=== PATIENT | female | born 1965 | race Two or more races ===

== ENCOUNTER 2019-12-03 06:54 | Emergency (ER) | payer MEDICAID, OTHER ==
[~2019-12-03] VITALS: Ht 154.9 cm; Wt 113.4 kg
[2019-12-03 07:28] VITALS: BP 135/62
== END 2019-12-03 08:15 | disposition home or self-care (01) ==
LOC: ER 06:54 → EDBD 06:54 → ER 08:15
DX: R06.00 Dyspnea, unspecified (principal); Z20.828 Contact with and (suspected) exposure to other viral communicable diseases
CPT/HCPCS: 36415; 71045; 87426

== ENCOUNTER 2020-05-06 02:13 | Emergency (ER) | payer MEDICAID ==
[~2020-05-06] VITALS: Ht 154.9 cm; Wt 124.7 kg
[2020-05-06 03:03] LABS: Basophils # (auto) 0.1 10 ^3/uL (0-0.2); Basophils % (auto) 0.6 % (0.0-2.0); Eosinophils # (auto) 0.2 10 ^3/uL (0-0.8); Eosinophils % (auto) 2.3 % (0.0-7.0); Hematocrit 41.7 % (36.0-46.0); Hemoglobin 13.7 g/dL (12.2-16.2); Lymphocytes # (auto) 1.7 10 ^3/uL (0.4-5.4); Lymphocytes % (auto) 15.6 % (10.0-50.0); Mean Corpuscular Hemoglobin 28.8 pg (28.0-32.0); Mean Corpuscular Volume 87.4 fL (80.0-100.0); Monocytes # (auto) 0.5 10 ^3/uL (0-1.3); Neutrophils # (auto) 8.3 10 ^3/uL (1.6-8.6); Neutrophils % (auto) 76.5 % (37.0-80.0); Nucleated Red Blood Cells % 0.1 %; Platelet Count (auto) 244 10^3/uL (140-450); Red Blood Cells 4.77 10^6/uL (4.0-5.20); Red Cell Distribution Width 16.2 % (11.8-14.3); White Blood Cell 10.9 10^3/uL (4.4-10.8)
[2020-05-06 03:23] LABS: Albumin 3.3 g/dL (3.4-5.0); Anion Gap 6 (5-15); Blood Urea Nitrogen 14 mg/dL (7-18); Calcium 9.2 mg/dL (8.5-10.1); Carbon Dioxide 28 mmol/L (21-32); Chloride 107 mmol/L (98-107); GFR African American 130 mL/min; GFR Non-African American 108 mL/min; Glucose 115 mg/dL (74-106); Potassium 3.8 mmol/L (3.5-5.1); Sodium 141 mmol/L (136-145)
[2020-05-06 03:28] LABS: Alanine Aminotransferase 28 U/L (13-56); Alkaline Phosphatase 87 U/L (45-117); Aspartate Aminotransferase 17 U/L (15-37); Bilirubin, Total 0.2 mg/dL (0.2-1.0); Total Protein 7.6 g/dL (6.4-8.2)
[2020-05-06 06:52] LABS: Urine Bacteria NONE SEEN /hpf (None Seen); Urine Blood Negative /uL (Negative); Urine Specific Gravity 1.011 (1.001-1.035); Urine WBC <1 /hpf (0 - 5)
[2020-05-06 07:26] VITALS: BP 139/74
== END 2020-05-06 08:28 | disposition home or self-care (01) ==
LOC: ER 02:15
DX: G47.30 Sleep apnea, unspecified (principal); E44.1 Mild protein-calorie malnutrition; E11.9 Type 2 diabetes mellitus without complications; E78.5 Hyperlipidemia, unspecified; I10 Essential (primary) hypertension; Z98.51 Tubal ligation status; Z68.43 Body mass index [BMI] 50.0-59.9, adult; Z90.49 Acquired absence of other specified parts of digestive tract
CPT/HCPCS: 36415; 71045; 80053; 81001; 83880; 84484; 85025; 93005

== ENCOUNTER 2025-01-06 06:05 | Inpatient (IN) | payer MEDICAID ==
[~2025-01-06] VITALS: Ht 154.9 cm; Wt 124.2 kg
--- NOTE | 2025-01-06 07:08 | ED.PDOC ---
Musculoskeletal HPI Comments 59-year-old female that presents to the ED with a chief complaint of lower extremity pain. Patient states since Sunday three days prior she has been having left leg pain and swelling. Patient states she was [place] [employer] and states she was possibly bite to the left leg Patient states since she has been having increased redness and swelling to the left leg. Patient states she applied Neosporin but states it has not been helping. Patient has a noted redness swelling and tenderness to the touch to the left leg. Patient is otherwise able to bear weight. Patient otherwise since denies any associated fever or shortness of breath chills and no noted pus or exudates noted. Chief Complaint: Lower Extremity Time Seen by MD: 07:04 Reviewed Notes: Medications, Allergies Allergies: Coded Allergies: NO KNOWN ALLERGIES (Unverified , 12/03/19) Home Meds Active Scripts Clindamycin Hcl (Clindamycin Hcl) 300 Mg Cap, 1 CAP PO TID, #30 CAP Prov:ALMA RAYA MD 01/09/25 Reported Medications Multiple Vitamin (Multivitamins) Tab, 1 TAB PO DAILY, #90 TAB 3 Refills 01/06/25 Valsartan-Hydrochlorothiazide (Diovan Hct) 160 Mg/25 Mg Tab, 1 TAB PO DAILY, #30 TAB 5 Refills 01/06/25 Information Source: Patient Mode of Arrival: Ambulatory Brought in by: Self Past Medical History PAST MEDICAL HISTORY: DM, High Lipids, HTN Surgical History: BTL, Cholecystectomy [employer]NAGER History: No Pertinent [employer]NAGER History Family History Family History: Family hx of DM Social History Smoker: Non-Smoker Alcohol: Denies ETOH Use Drugs: Denies Drug Use Lives In: Home Constitutional: denies: chills, diaphoresis, fatigue, fever, malaise, sweats, weakness, others EENTM: denies: blurred vision, double vision, ear bleeding, ear discharge, ear drainage, ear pain, ear ringing, eye pain, eye redness, hearing loss, mouth pain, mouth swelling, nasal discharge, nose bleeding, nose congestion, nose pain, photophobia, tearing, throat pain, throat swelling, voice changes, others Respiratory: denies: cough, hemoptysis, orthopnea, SOB at rest, shortness of breath, SOB with excertion, stridor, wheezing, others Cardiovascular: denies: chest pain, dizzy spells, diaphoresis, Dyspnea on exertion, edema, irregular heart beat, left arm pain, lightheadedness, palpitations, PND, syncope, others Gastrointestinal: denies: abdomen distended, abdominal pain, blood streaked bowels, constipated, diarrhea, dysphagia, difficulty swallowing, hematemesis, melena, nausea, poor appetite, poor fluid intake, rectal bleeding, rectal pain, vomiting, others Genitourinary: denies: abnormal vagina bleeding, burning, dyspareunia, dysuria, flank pain, frequency, hematuria, incontinence, pain, , vagina discharge, urgency, others Neurological: denies: dizziness, fainting, headache, left sided numbness, left sided weakness, numbness, paresthesia, pre-existing deficit, right sided numbness, right sided weakness, seizure, speech problems, tingling, tremors, weakness, others Musculoskeletal: reports: joint pain (Left leg), joint swelling (Left leg); denies: back pain, gout, muscle pain, muscle stiffness, neck pain, others Integumetry: denies: bruises, change in color, change in hair/nails, dryness, laceration, lesions, lumps, rash, wounds, others Allergic/Immunocompromised: denies: Difficulty Healing, Frequent Infections, Hives, Itching, others Hematologic/Lymphatic: denies: anemia, blood clots, easy bleeding, easy bruising, swollen glands, others Endocrine: denies: excessive hunger, excessive sweating, excessive thirst, excessive urination, flushing, intolerance to cold, intolerance to heat, unexplained weight gain, unexplained weight loss, others Psychiatric: denies: anxiety, bipolar disorder, depression, hopeless, panic disorder, schizophrenia, sleepless, suicidal, others All Other Systems: Reviewed and Negative Physical Exam General Appearance: No Apparent Distress, Normal HEENT: Normal ENT Inspection, Pharynx Normal, TMs Normal Neck: Full Range of Motion, Non-Tender, Normal, Normal Inspection Respiratory: Chest Non-Tender, Lungs Clear, No Accessory Muscle Use, No Respiratory Distress, Normal Breath Sounds Cardiovascular: No Edema, No JVD, No Murmur, No Gallop, Normal Peripheral Pulses, Regular Rate/Rhythm Breast Exam: Deferred Gastrointestinal: No Organomegaly, Non Tender, No Pulsatile Mass, Normal Bowel Sounds, Soft Genitalia: Deferred Pelvic: Deferred Rectal: Deferred Extremities: No calf tenderness, Normal capillary refill, Normal inspection, Normal range of motion, Non-tender, No pedal edema Musculoskeletal : Apperance: Normal Neurologic: Alert, manager farm II-XII nml as Tested, No Motor Deficits, Normal Affect, Normal Mood, No Sensory Deficits Cerebellar Function: Normal Reflexes: Normal Skin: Dry, Normal Color, Warm Lymphatic: No Adenopathy Was a procedure done? Was a procedure done?: No Images 1 - Erythema, warmth, TTP. no draiage. no crepitus Differential Diagnosis EXT Differential Diagnosis: Cellulitis, Fracture, Sprain, Dislocation, Septic Other Differential Diagnosis Osteomyelitis X-Ray, Labs, Meds, VS Vital Signs Date Time Temp Pulse Resp B/P (MAP) Pulse Ox O2 Delivery O2 Flow Rate FiO2 01/06/25 10:43 75 18 143/71 (95) 92 01/06/25 10:40 Room Air* 0 21 01/06/25 06:08 99.0 102 18 145/77 95 99.0 Lab Test 01/06/25 08:48 01/06/25 07:10 Range/Units Urine Color Yellow Yellow Urine Clarity Clear Clear Urine pH 6.0 5.0-9.0 Urine Specific [place] 1.023 1.001-1.035 Urine Protein Negative Negative Urine Ketones Negative Negative Urine Blood Negative Negative /uL Urine Nitrite Negative Negative Urine Bilirubin Negative Negative Urine Urobilinogen Normal Negative mg/dL Urine Leukocyte Esterase Negative Negative /uL Urine RBC 2 0 - 4 /hpf Urine Microscopic WBC 2 0-5 /HPF Urine Squamous Epithelial Cells Few <5 /hpf Urine Bacteria Few H None Seen /hpf Urine Mucus Few None Seen Urine Glucose Normal Normal mg/dL White Blood Count 14.9 H 4.4-10.8 10^3/uL Red Blood Count 4.77 4.0-5.20 10^6/uL Hemoglobin 13.8 12.2-16.2 g/dL Hematocrit 42.7 36.0-46.0 % Mean Corpuscular Volume 89.5 80.0-100.0 fL Mean Corpuscular Hemoglobin 29.0 28.0-32.0 pg Mean Corpuscular Hemoglobin Concent 32.4 32.0-36.0 g/dL Red Cell Distribution Width 14.7 H 11.8-14.3 % Platelet Count 262 140-450 10^3/uL Mean Platelet Volume 11.0 H 6.9-10.8 fL Neutrophils (%) (Auto) 81.6 H 37.0-80.0 % Lymphocytes (%) (Auto) 11.1 10.0-50.0 % Monocytes (%) (Auto) 5.6 0.0-12.0 % Eosinophils (%) (Auto) 1.0 0.0-7.0 % Basophils (%) (Auto) 0.7 0.0-2.0 % Neutrophils # (Auto) 12.1 H 1.6-8.6 10 ^3/uL Lymphocytes # (Auto) 1.7 0.4-5.4 10 ^3/uL Monocytes # (Auto) 0.8 0-1.3 10 ^3/uL Eosinophils # (Auto) 0.1 0-0.8 10 ^3/uL Basophils # (Auto) 0.1 0-0.2 10 ^3/uL Nucleated Red Blood Cells 0.0 % Erythrocyte Sedimentation Rate 39 H 0-20 mm/hr Sodium Level 138 136-145 mmol/L Potassium Level 4.2 3.5-5.1 mmol/L Chloride Level 100 98-107 mmol/L Carbon Dioxide Level 28 20-31 mmol/L Anion Gap 10 5-15 Blood Urea Nitrogen 17 9-23 mg/dL Creatinine 0.73 0.550-1.02 mg/dL Glomerular Filtration Rate Calc 94 >90 mL/min BUN/Creatinine Ratio 23.3 H 10.0-20.0 Serum Glucose 108 H 74-106 mg/dL Lactic Acid Level 0.8 0.4-2.0 mmol/L Calcium Level 9.6 8.7-10.4 mg/dL Total Bilirubin 0.9 0.2-1.0 mg/dL Aspartate Amino Transferase (AST) 22 13-40 U/L Alanine Aminotransferase (ALT) 29 7-40 U/L Alkaline Phosphatase 105 46-116 U/L C-Reactive Protein High Sensitivity 8.21 H <1.0 mg/dL Total Protein 7.3 5.7-8.2 g/dL Albumin 4.2 3.2-4.8 g/dL Current Medications Medications (Trade) Dose Ordered Sig/Pratik Route Start Time Stop Time Status Last Admin Cefazolin Sodium/ Dextrose 50 ml @ 50 mls/hr ONCE ONCE IV 01/06/25 10:15 01/06/25 11:14 01/06/25 10:37 [place] [id number] Ph: [phone] DIAGNOSTIC IMAGING Diagnostic Imaging Report : [id number] Signed PATIENT: ISABEL ARCHER ACCT: [id number] UNIT: [id number] : 1965 LOC: ER ROOM / BED: / AGE / SEX: 59 / F ADM STATUS: REG ER SERVICE 4 ORDERING PHYSICIAN: RADHA BOND SECONDS HANDLER PROCEDURE(s): LE1CR - LT LOWER EXTREMITY W CONTRAS REASON: R/o abscess formation, cellulitis, OM ORDER NUMBER(s): [id number], ACCESSION NUMBER(s): [id number] CLINICAL INDICATION: R/o abscess formation, cellulitis, OM TECHNIQUE: CT of the left lower extremity was performed with 100 mL Omnipaque [address] Sagittal and coronal reformatted images are provided. COMPARISON: None CT Dose: CTDI volume is 8.03 mGy. Dose-length product is 6.22 mGy*cm FINDINGS: No fracture or dislocation. There is medial compartment joint space narrowing of the knee. There are tricompartment osteophytes. There soft tissue swelling in the calf and dorsal foot. No fluid collection. IMPRESSION: 1. No acute fracture or dislocation. 2. Soft tissue swelling of the left lower extremity. 3. No drainable fluid collection. All CT scans at this medical facility are performed using dose modulation techniques as appropriate to a performed exam including the following: Automated exposure control was utilized; adjustment of the MA and/or KV according to patient size; and use of iterative reconstruction technique. ATED BY: ENRIQUE BRAUN MD DICTATED DATE/TIME: 01/06/251008 SIGNED BY: ENRIQUE BRAUN MD SIGNED DATE/TIME: 01/06/251008 CC: X-Ray, Labs, Meds, VS Comment Patient arrives alert and oriented, ABC's intact, afebrile, vital signs stable, saturating well in room air History and findings consistent with cellulitis. The patient did not require an incision and drainage. Differentials considered but not limited to Necrotizing Fasciitis, Abscess, Osteomyelitis, DVT Peripheral IV insertion+ labs were ordered. CBC was ordered to exclude anemia, blood loss, or infection. CMP was ordered to exclude electrolyte abnormalities, renal failure, dehydration, hyperglycemia and/or liver enzyme abnormalities. Urinalysis was ordered to rule out UTI or hematuria. Patient was given:ANCEF X 1. Tolerated medications with no adverse reaction. Patients work up was remarkable for cellulitis of the left lower extremity The patient's workup reveals that the patient needs further evaluation and/or treatment for the above medical conditions. Patient verbalized understanding of the above and is awaiting further evaluation by the admitting service. Time of 1ST Reevaluation: 07:40 Reevaluation 1ST: Unchanged Patient Education/Counseling: Diagnosis, Treatment Family Education/Counseling: No Family Present Sepsis Sepsis Reasesment Focused Exam Orders: Laboratory Tests 01/06/25 07:10: Lactic Acid Level 0.8 Departure 1 Departure Time of Disposition: 10:15 Impression: Primary Impression: Cellulitis of left leg Disposition: ADMITTED INPATIENT Condition: Fair e-Prescriptions Clindamycin Hcl (Clindamycin Hcl) 300 Mg Cap 1 CAP PO TID, #30 CAP Prov: ALMA RAYA MD 01/09/25 Critical Care Note Critical Care Time?: No Stability Stability form required: No Heart Score Heart Score: Heart Score Response (Comments) Value History N/A 0 EKG N/A 0 Age N/A 0 Risk Factors N/A 0 Troponin N/A 0 Total 0 I personally scribed for RADHA BOND NP (BULMARO) on 01/06/25 at 07:08. Electronically submitted by Alisa Erazo ([employer]). I personally scribed for RADHA BOND NP (BULMARO) on 01/06/25 at 10:59. Electronically submitted by Alisa WALKER). RADHA BOND NP Jan 06, 2025 07:08
[2025-01-06 08:06] LABS: Alanine Aminotransferase 29 U/L (7-40); Albumin 4.2 g/dL (3.2-4.8); Alkaline Phosphatase 105 U/L (46-116); Anion Gap 10 (5-15); BUN/Creatinine Ratio 23.3 (10.0-20.0); Bilirubin, Total 0.9 mg/dL (0.2-1.0); Blood Urea Nitrogen 17 mg/dL (9-23); Calcium 9.6 mg/dL (8.7-10.4); Carbon Dioxide 28 mmol/L (20-31); Chloride 100 mmol/L (98-107); Potassium 4.2 mmol/L (3.5-5.1); Sodium 138 mmol/L (136-145); Total Protein 7.3 g/dL (5.7-8.2)
[2025-01-06 08:11] LABS: Glucose 108 mg/dL (74-106)
[2025-01-06 08:31] LABS: Hematocrit 42.7 % (36.0-46.0); Hemoglobin 13.8 g/dL (12.2-16.2); Mean Corpuscular Hemoglobin 29.0 pg (28.0-32.0); Mean Corpuscular Volume 89.5 fL (80.0-100.0); Nucleated Red Blood Cells % 0.0 %
[2025-01-06] MEDS: IOHEXOL 300 MG/ML 100ML BOTTLE IJ ONE (10:11)
--- NOTE | 2025-01-06 10:11 | DVH ---
CLINICAL INDICATION: R/o abscess formation, cellulitis, OM TECHNIQUE: CT of the left lower extremity was performed with 100 mL Omnipaque [address] Sagittal and coronal reformatted images are provided. COMPARISON: None CT Dose: CTDI volume is 8.03 mGy. Dose-length product is 6.22 mGy*cm FINDINGS: No fracture or dislocation. There is medial compartment joint space narrowing of the knee. There are tricompartment osteophytes. There soft tissue swelling in the calf and dorsal foot. No f luid collection. IMPRESSION: 1. No acute fracture or dislocation. 2. Soft tissue swelling of the left lower extremity. 3. No drainable fluid collection. All CT scans at this medical facility are performed using dose modulation techniques as appropriate t o a performed exam including the following: Automated exposure control was utilized; adjustment of th e MA and/or KV according to patient size; and use of iterative reconstruction technique.
[2025-01-06 10:29] LABS: Urine Protein, UAD Negative (Negative)
[2025-01-06] MEDS: ceFAZolin 2 GM/D5W50ml 50 ML IV ONE (10:37)
[2025-01-06] MEDS ORDERED: ACETAMINOPHEN 325 MG TAB PO PRN ×2 (12:30→12:45)
[2025-01-06] MEDS ORDERED: DOCUSATE SOD 100 MG CAP PO PRN ×2 (12:30→12:45)
[2025-01-06] MEDS ORDERED: ONDANSETRON HCL 4 MG/2 ML VIAL IV PRN ×2 (12:30→12:45)
[2025-01-06] MEDS ORDERED: HYDROcodone-ACET 5/325MG TAB PO PRN (12:30)
--- NOTE | 2025-01-06 12:37 | DVHHP2 ---
History of Present Illness Reason for Visit: left leg pain History of Present Illness Ceci Fisher is a 59-year-old female with past medical history of hyperlipidemia, pre-diabetes, and hypertension, who came to the hospital for left lower leg redness, swelling, abrasion, and pain. Patient states she thinks she was bite by something on Sunday that started her infection. Patient states she does not take any medications for her pre-diabetes, she manages it with diet. Cardiovascular: HTN, hyperipidemia Past Surgical History: Cholecystectomy, Tubal Ligation Smoke: No ALCOHOL: none Drugs: None Lives: with Family Domestic Violence: Neg Review of Systems Constitutional: No: Fever, Chills, Sweats, Weakness, Malaise, Other Eyes: No: Pain, Vision change, Conjunctivae inflammation, Eyelid inflammation, Other, Redness ENT: No: Ear pain, Ear discharge, Nose pain, Nose discharge, Nose congestion, Mouth pain, Mouth swelling, Throat pain, Throat swelling, Other Respiratory: No: Cough, Dry, Shortness of breath, SOB with excertion, Wheezing, Hemoptysis, Pleuritic Pain, Sputum, Wheezing, Other Cardiovascular: No: Chest Pain, Palpitations, Orthopnea, Paroxysmal Noc. Dyspnea, Edema, Lt Headedness, Other Gastrointestinal: No: Nausea, Vomiting, Abdominal Pain, Diarrhea, Constipation, Melena, Hematochezia, Other Genitourinary: No Dysuria, No Frequency, No Incontinence, No Hematuria, No Retention, No Other Musculoskeletal: leg pain (left leg); No: other, neck pain, shoulder pain, arm pain, back pain, hand pain, foot pain Skin: Lesions (left lower leg redness, swelling, abrasion); No: Rash, Jaundice, Bruising, Other Neurological: No: Weakness, Numbness, Incoordination, Change in speech, Confusion, Seizures, Other Allergies: Coded Allergies: NO KNOWN ALLERGIES (Unverified , 12/03/19) Medications Current Medications Medications Dose Ordered Sig/Pratik Route Start Time Stop Time Status Last Admin Dose Admin Acetaminophen/ Hydrocodone Bitart 1 tab Q4HP PRN PO 01/06/25 12:30 UNV Ondansetron HCl 4 mg Q4HP PRN IV 01/06/25 12:30 UNV Docusate Sodium 100 mg BIDPRN PRN PO 01/06/25 12:30 UNV Acetaminophen 650 mg Q6HP PRN PO 01/06/25 12:30 UNV Exam Vital Signs Vital Signs Date Time Temp Pulse Resp B/P (MAP) Pulse Ox O2 Delivery O2 Flow Rate FiO2 01/06/25 10:43 75 18 143/71 (95) 92 01/06/25 10:40 Room Air* 0 21 01/06/25 06:08 99.0 99.0 General Appearance: Alert, Oriented X3, Cooperative, mild distress HEENT: Atraumatic, PERRLA Respiratory: Clear to auscultation, Normal air movement Cardiovascular: Regular rate, Normal S1, Normal S2 Abdominal: Normal bowel sounds, Soft, No tenderness, No hepatospenomegaly Extremities: No clubbing, No cyanosis, No edema, Normal pulses Skin: No rashes, No breakdown, No significant lesion Neuro: Normal gait, Normal speech, Strength at 5/5 X4 ext Psych/Mental Status: Mental status NL, Mood NL Labs/Xrays Labs Test 01/06/25 08:48 01/06/25 07:10 Range/Units Urine Color Yellow Yellow Urine Clarity Clear Clear Urine pH 6.0 5.0-9.0 Urine Specific [place] 1.023 1.001-1.035 Urine Protein Negative Negative Urine Ketones Negative Negative Urine Blood Negative Negative /uL Urine Nitrite Negative Negative Urine Bilirubin Negative Negative Urine Urobilinogen Normal Negative mg/dL Urine Leukocyte Esterase Negative Negative /uL Urine RBC 2 0 - 4 /hpf Urine Microscopic WBC 2 0-5 /HPF Urine Squamous Epithelial Cells Few <5 /hpf Urine Bacteria Few H None Seen /hpf Urine Mucus Few None Seen Urine Glucose Normal Normal mg/dL White Blood Count 14.9 H 4.4-10.8 10^3/uL Red Blood Count 4.77 4.0-5.20 10^6/uL Hemoglobin 13.8 12.2-16.2 g/dL Hematocrit 42.7 36.0-46.0 % Mean Corpuscular Volume 89.5 80.0-100.0 fL Mean Corpuscular Hemoglobin 29.0 28.0-32.0 pg Mean Corpuscular Hemoglobin Concent 32.4 32.0-36.0 g/dL Red Cell Distribution Width 14.7 H 11.8-14.3 % Platelet Count 262 140-450 10^3/uL Mean Platelet Volume 11.0 H 6.9-10.8 fL Neutrophils (%) (Auto) 81.6 H 37.0-80.0 % Lymphocytes (%) (Auto) 11.1 10.0-50.0 % Monocytes (%) (Auto) 5.6 0.0-12.0 % Eosinophils (%) (Auto) 1.0 0.0-7.0 % Basophils (%) (Auto) 0.7 0.0-2.0 % Neutrophils # (Auto) 12.1 H 1.6-8.6 10 ^3/uL Lymphocytes # (Auto) 1.7 0.4-5.4 10 ^3/uL Monocytes # (Auto) 0.8 0-1.3 10 ^3/uL Eosinophils # (Auto) 0.1 0-0.8 10 ^3/uL Basophils # (Auto) 0.1 0-0.2 10 ^3/uL Nucleated Red Blood Cells 0.0 % Erythrocyte Sedimentation Rate 39 H 0-20 mm/hr Sodium Level 138 136-145 mmol/L Potassium Level 4.2 3.5-5.1 mmol/L Chloride Level 100 98-107 mmol/L Carbon Dioxide Level 28 20-31 mmol/L Anion Gap 10 5-15 Blood Urea Nitrogen 17 9-23 mg/dL Creatinine 0.73 0.550-1.02 mg/dL Glomerular Filtration Rate Calc 94 >90 mL/min BUN/Creatinine Ratio 23.3 H 10.0-20.0 Serum Glucose 108 H 74-106 mg/dL Lactic Acid Level 0.8 0.4-2.0 mmol/L Calcium Level 9.6 8.7-10.4 mg/dL Total Bilirubin 0.9 0.2-1.0 mg/dL Aspartate Amino Transferase (AST) 22 13-40 U/L Alanine Aminotransferase (ALT) 29 7-40 U/L Alkaline Phosphatase 105 46-116 U/L C-Reactive Protein High Sensitivity 8.21 H <1.0 mg/dL Total Protein 7.3 5.7-8.2 g/dL Albumin 4.2 3.2-4.8 g/dL TECHNIQUE: CT of the left lower extremity was performed with 100 mL Omnipaque 300 intravenous contrast. FINDINGS: No fracture or dislocation. There is medial compartment joint space narrowing of the knee. There are tricompartment osteophytes. There soft tissue swelling in the calf and dorsal foot. No fluid collection. IMPRESSION: 1. No acute fracture or dislocation. 2. Soft tissue swelling of the left lower extremity. 3. No drainable fluid collection. SEPSIS Sepsis Screen Date sepsis recognized/suspect: Jan 06, 2025 Time Sepsis recognized/suspect: 607 Recent Procedure: No On Antibiotic Therapy: No Respiratory Rate >20: No Heart Rate >90: Yes Temp<36 C (96.8 F) or >38.3 C: No SBP <90 or MAP <65 mmHG: No New Acute Mental Status Change: No Is the patient on CPAP, BIPAP,: No Physician Orders Blood Culture (01/06/25 06:49) Lt Lower Extremity W [place] (01/06/25 09:15) Admit (01/06/25 12:30) Code Status (01/06/25 12:30) 2 Gm Sodium Diet (01/06/25 Lunch) Hydrocodone-Acet 5/325mg Tab (Cabot 5/32 (01/06/25 12:30) Ondansetron Hcl (Zofran) (01/06/25 12:30) Docusate Sodium Capsule (Colace Capsule) (01/06/25 12:30) Complete Blood Count (01/07/25 04:00) Comprehensive Metabolic Panel (01/07/25 04:00) Condition: Serious (01/06/25 12:30) Acetaminophen Tablet (Tylenol Tablet) (01/06/25 12:30) Vital Signs Date Time Temp Pulse Resp B/P (MAP) Pulse Ox O2 Delivery O2 Flow Rate FiO2 01/06/25 10:43 75 18 143/71 (95) 92 01/06/25 10:40 Room Air* 0 21 01/06/25 06:08 99.0 102 18 145/77 95 99.0 Laboratory Tests Test 01/06/25 07:10 Lactic Acid Level 0.8 mmol/L (0.4-2.0) White Blood Count 14.9 10^3/uL (4.4-10.8) H Medications Medications Dose Ordered Sig/Pratik Route Start Time Stop Time Status Last Admin Dose Admin Cefazolin Sodium/ Dextrose 50 ml @ 50 mls/hr ONCE ONCE IV 01/06/25 10:15 01/06/25 11:14 DC 01/06/25 10:37 50 MLS/HR Assessment/Plan Assessment/Plan Assessment: Cellulitis of left leg, Leukocytosis, Pre-diabetes, Hypertension, Plan: Admit to Med-Surg, IV antibiotics, IV hydration, Wound culture, Home medications reconciled, Plan discussed with: Patient My Orders Orders - RAJEEV MEADE Procedure Category Date Status Time Admit ADMIT 01/06/25 Transmitted 12:30 Code Status CODE 01/06/25 Transmitted 12:30 2 Gm Sodium Diet DIET 01/06/25 Transmitted Lunch Hydrocodone-Acet PHA 01/06/25 Logged 5/325mg Tab (Cabot 12:30 Ondansetron Hcl PHA 01/06/25 Logged (Zofran) 12:30 Docusate Sodium PHA 01/06/25 Logged Capsule (Colace 12:30 Complete Blood Count LAB 01/07/25 Verified 04:00 Comprehensive LAB 01/07/25 Verified Metabolic Panel 04:00 Condition: Serious MARGARETH 01/06/25 In Process 12:30 Acetaminophen Tablet PHA 01/06/25 Logged (Tylenol Tablet) 12:30 Date of Service: Jan 06, 2025 Billing Provider: RAJEEV MEADE Common Visit Codes: [id number] INP/OBS CARE (MOD) RAJEEV MEADE Jan 06, 2025 12:37
[2025-01-06] MEDS: SODIUM CHLORIDE 0.9% 1,000 ML IV ONE ×2 (12:45→15:17)
[2025-01-06] MEDS ORDERED: SODIUM CHLORIDE 0.9% 1,000 ML IV ONE ×2 (12:45)
[2025-01-06 13:48] VITALS: BP 144/61; PULSE 77; RESP 18; TEMP 97.8; O2SAT 92
[2025-01-06 13:50] VITALS: BP 144/61; PULSE 77; RESP 18; TEMP 97.8; O2SAT 92
[2025-01-06] MEDS ORDERED: CLINDAMYCIN 600MG IV 50 ML IV SCH (14:00)
[2025-01-06] MEDS ORDERED: VALS160T6 PO (14:13)
[2025-01-06] MEDS ORDERED: MULT-1018 PO (14:15)
[2025-01-06] MEDS ORDERED: MULT1TAB70 PO (14:16)
[2025-01-06] MEDS ORDERED: MULT-1228 PO (14:18)
[2025-01-06] MEDS: CLINDAMYCIN 600MG IV 50 ML IV SCH (15:24)
[2025-01-06 16:47] VITALS: BP 134/76; PULSE 80; RESP 19; TEMP 97.2; O2SAT 97
[2025-01-06 20:00] VITALS: PULSE 86; RESP 18; O2SAT 95
[2025-01-06 21:00] VITALS: BP 133/84; PULSE 86; RESP 18; TEMP 98.8; O2SAT 94
[2025-01-06] MEDS: HYDROcodone-ACET 5/325MG TAB PO PRN (21:04)
[2025-01-07] VITALS (8 sets, daily range): BP systolic 108–137; BP diastolic 53–96; PULSE 72–83; RESP 16–20; TEMP 98–98.8; O2SAT 94–97
[2025-01-07 05:43] LABS: Hematocrit 41.0 % (36.0-46.0); Hemoglobin 13.3 g/dL (12.2-16.2); Mean Corpuscular Hemoglobin 29.5 pg (28.0-32.0); Mean Corpuscular Volume 90.9 fL (80.0-100.0); Nucleated Red Blood Cells % 0.2 %
[2025-01-07 05:56] LABS: Alanine Aminotransferase 35 U/L (7-40); Albumin 4.1 g/dL (3.2-4.8); Alkaline Phosphatase 112 U/L (46-116); Anion Gap 10 (5-15); BUN/Creatinine Ratio 10.3 (10.0-20.0); Bilirubin, Total 0.8 mg/dL (0.2-1.0); Calcium 9.4 mg/dL (8.7-10.4); Carbon Dioxide 24 mmol/L (20-31); Chloride 103 mmol/L (98-107); Glucose 105 mg/dL (74-106); Potassium 4.2 mmol/L (3.5-5.1); Sodium 137 mmol/L (136-145); Total Protein 7.6 g/dL (5.7-8.2)
[2025-01-07 05:59] LABS: Blood Urea Nitrogen 8 mg/dL (9-23)
--- NOTE | 2025-01-07 13:41 | DVHPN2 ---
Reviewed: Care Plan Changes from previous H/P or p: No Changes Eyes: No Pain, No Vision change, No Conjunctivae inflammation, No Eyelid inflammation, No Other, No Redness ENT: No Ear pain, No Ear discharge, No Nose pain, No Nose discharge, No Nose congestion, No Mouth pain, No Mouth swelling, No Throat pain, No Throat swelling, No Other Cardiovascular: No Chest Pain, No Palpitations, No Orthopnea, No Paroxysmal Noc. Dyspnea, No Edema, No Lt Headedness, No Other Respiratory: No Cough, No Dry, No Shortness of breath, No SOB with excertion, No Wheezing, No Hemoptysis, No Pleuritic Pain, No Sputum, No Other Gastrointestinal: No Nausea, No Vomiting, No Abdominal Pain, No Diarrhea, No Constipation, No Melena, No Hematochezia, No Other Genitourinary: No Dysuria, No Frequency, No Incontinence, No Hematuria, No Retention, No Other Musculoskeletal: No other, No neck pain, No shoulder pain, No arm pain, No back pain, No hand pain; leg pain (left leg); No foot pain Skin: No Rash; Lesions (left lower leg redness, swelling, abrasion); No Jaundice, No Bruising, No Other Objective Vitals Vital Signs Date Time Temp Pulse Resp B/P (MAP) Pulse Ox O2 Delivery O2 Flow Rate FiO2 01/07/25 09:00 98.2 73 16 113/70 (84) 97 98.2 01/06/25 20:00 Room Air* 0 21 Intake/Output Intake and Output 01/07/25 07:00 Intake Total 1100 ml Balance 1100 ml Intake Oral 950 ml IV Total 150 ml # Voids 4 Medications Current Medications Medications Dose Ordered Sig/Pratik Route Start Time Stop Time Status Last Admin Dose Admin Ondansetron HCl 4 mg Q4HP PRN IV 01/06/25 12:45 Clindamycin Phosphate 50 ml @ 50 mls/hr Q8HR IV 01/06/25 14:00 01/07/25 05:28 50 MLS/HR Acetaminophen/ Hydrocodone Bitart 1 tab Q4HP PRN PO 01/06/25 12:45 01/06/25 21:04 1 TAB Docusate Sodium 100 mg BIDPRN PRN PO 01/06/25 12:45 Acetaminophen 650 mg Q6HP PRN PO 01/06/25 12:45 Laboratory Results Laboratory Tests 01/07/25 05:19 Chemistry Test 01/07/25 05:19 Albumin 4.1 g/dL (3.2-4.8) Calcium Level 9.4 mg/dL (8.7-10.4) Total Protein 7.6 g/dL (5.7-8.2) LFT Test 01/07/25 05:19 Alanine Aminotransferase (ALT) 35 U/L (7-40) Alkaline Phosphatase 112 U/L (46-116) Aspartate Amino Transferase (AST) 40 U/L (13-40) Total Bilirubin 0.8 mg/dL (0.2-1.0) Urinalysis Test 01/06/25 08:48 Urine Color Yellow (Yellow) Urine Clarity Clear (Clear) Urine pH 6.0 (5.0-9.0) Urine Specific [place] 1.023 (1.001-1.035) Urine Protein Negative (Negative) Urine Ketones Negative (Negative) Urine Blood Negative /uL (Negative) Urine Nitrite Negative (Negative) Urine Bilirubin Negative (Negative) Urine Urobilinogen Normal mg/dL (Negative) Urine Leukocyte Esterase Negative /uL (Negative) Urine RBC 2 /hpf (0 - 4) Urine Microscopic WBC 2 /HPF (0-5) Urine Squamous Epithelial Cells Few /hpf (<5) Urine Bacteria Few /hpf (None Seen) H Urine Mucus Few (None Seen) Urine Glucose Normal mg/dL (Normal) Microbiology Microbiology Date/Time Source Procedure Growth Status 01/06/25 07:17 Blood Blood Culture - Preliminary NO GROWTH AFTER 24 HOURS OF INCUBATION. Resulted Labs and/or images reviewed: Labs reviewed by me, Image(s) reviewed by me Assessment/Plan Assessment/Plan Sepsis secondary to cellulitis left lower extremity Acute Cellulitis left lower extremity clindamycin IV Hypertension Hypercholesterolemia Plan discussed with: Patient Date of Service: Jan 07, 2025 Billing Provider: ALMA RAYA MD Common Visit Codes: [id number] INP/OBS CARE(HIGH) ALMA RAYA MD Jan 07, 2025 13:41
[2025-01-08] VITALS (7 sets, daily range): BP systolic 118–137; BP diastolic 63–76; PULSE 65–72; RESP 17–18; TEMP 97.8–98.3; O2SAT 93–98
--- NOTE | 2025-01-08 09:33 | DVHPN2 ---
Reviewed: Care Plan Changes from previous H/P or p: No Changes Eyes: No Pain, No Vision change, No Conjunctivae inflammation, No Eyelid inflammation, No Other, No Redness ENT: No Ear pain, No Ear discharge, No Nose pain, No Nose discharge, No Nose congestion, No Mouth pain, No Mouth swelling, No Throat pain, No Throat swelling, No Other Cardiovascular: No Chest Pain, No Palpitations, No Orthopnea, No Paroxysmal Noc. Dyspnea, No Edema, No Lt Headedness, No Other Respiratory: No Cough, No Dry, No Shortness of breath, No SOB with excertion, No Wheezing, No Hemoptysis, No Pleuritic Pain, No Sputum, No Other Gastrointestinal: No Nausea, No Vomiting, No Abdominal Pain, No Diarrhea, No Constipation, No Melena, No Hematochezia, No Other Genitourinary: No Dysuria, No Frequency, No Incontinence, No Hematuria, No Retention, No Other Musculoskeletal: No other, No neck pain, No shoulder pain, No arm pain, No back pain, No hand pain; leg pain (left leg); No foot pain Skin: No Rash; Lesions (left lower leg redness, swelling, abrasion); No Jaundice, No Bruising, No Other Objective Vitals Vital Signs Date Time Temp Pulse Resp B/P (MAP) Pulse Ox O2 Delivery O2 Flow Rate FiO2 01/08/25 05:00 98.3 69 17 118/63 (81) 93 98.3 01/07/25 20:00 Room Air* 0 21 Intake/Output Intake and Output 01/08/25 07:00 Intake Total 1500 ml Balance 1500 ml Intake Oral 1400 ml IV Total 100 ml # Voids 7 # Bowel Movements 3 Medications Current Medications Medications Dose Ordered Sig/Pratik Route Start Time Stop Time Status Last Admin Dose Admin Ondansetron HCl 4 mg Q4HP PRN IV 01/06/25 12:45 Clindamycin Phosphate 50 ml @ 50 mls/hr Q8HR IV 01/06/25 14:00 01/08/25 05:26 50 MLS/HR Acetaminophen/ Hydrocodone Bitart 1 tab Q4HP PRN PO 01/06/25 12:45 01/06/25 21:04 1 TAB Docusate Sodium 100 mg BIDPRN PRN PO 01/06/25 12:45 Acetaminophen 650 mg Q6HP PRN PO 01/06/25 12:45 Laboratory Results Laboratory Tests 01/07/25 05:19 Urinalysis Test 01/06/25 08:48 Urine Color Yellow (Yellow) Urine Clarity Clear (Clear) Urine pH 6.0 (5.0-9.0) Urine Specific [place] 1.023 (1.001-1.035) Urine Protein Negative (Negative) Urine Ketones Negative (Negative) Urine Blood Negative /uL (Negative) Urine Nitrite Negative (Negative) Urine Bilirubin Negative (Negative) Urine Urobilinogen Normal mg/dL (Negative) Urine Leukocyte Esterase Negative /uL (Negative) Urine RBC 2 /hpf (0 - 4) Urine Microscopic WBC 2 /HPF (0-5) Urine Squamous Epithelial Cells Few /hpf (<5) Urine Bacteria Few /hpf (None Seen) H Urine Mucus Few (None Seen) Urine Glucose Normal mg/dL (Normal) Microbiology Microbiology Date/Time Source Procedure Growth Status 01/06/25 07:17 Blood Blood Culture - Preliminary NO GROWTH AFTER 48 HOURS OF INCUBATION. Resulted Labs and/or images reviewed: Labs reviewed by me, Image(s) reviewed by me Assessment/Plan Assessment/Plan Sepsis secondary to cellulitis left lower extremity Acute Cellulitis left lower extremity clindamycin IV Hypertension Hypercholesterolemia Feeling better Will discharge tomorrow Plan discussed with: Patient Date of Service: Jan 08, 2025 Billing Provider: ALMA RAYA MD Common Visit Codes: [id number] INP/OBS CARE(HIGH) ALMA RAYA MD Jan 08, 2025 09:33
[2025-01-09 01:00] VITALS: BP 115/70; PULSE 71; RESP 17; TEMP 98.6; O2SAT 95
[2025-01-09 05:00] VITALS: BP 117/65; PULSE 74; RESP 16; TEMP 97.7; O2SAT 95
[2025-01-09 07:30] VITALS: PULSE 68; RESP 17; O2SAT 94
[2025-01-09 09:00] VITALS: BP 124/84; PULSE 68; RESP 17; TEMP 97.6; O2SAT 92
[2025-01-09] MEDS ORDERED: CLIN1CAP70 PO (09:30)
--- NOTE | 2025-01-09 09:31 | DVHPN2 ---
Reviewed: Care Plan Changes from previous H/P or p: No Changes Eyes: No Pain, No Vision change, No Conjunctivae inflammation, No Eyelid inflammation, No Other, No Redness ENT: No Ear pain, No Ear discharge, No Nose pain, No Nose discharge, No Nose congestion, No Mouth pain, No Mouth swelling, No Throat pain, No Throat swelling, No Other Cardiovascular: No Chest Pain, No Palpitations, No Orthopnea, No Paroxysmal Noc. Dyspnea, No Edema, No Lt Headedness, No Other Respiratory: No Cough, No Dry, No Shortness of breath, No SOB with excertion, No Wheezing, No Hemoptysis, No Pleuritic Pain, No Sputum, No Other Gastrointestinal: No Nausea, No Vomiting, No Abdominal Pain, No Diarrhea, No Constipation, No Melena, No Hematochezia, No Other Genitourinary: No Dysuria, No Frequency, No Incontinence, No Hematuria, No Retention, No Other Musculoskeletal: No other, No neck pain, No shoulder pain, No arm pain, No back pain, No hand pain; leg pain (left leg); No foot pain Skin: No Rash; Lesions (left lower leg redness, swelling, abrasion); No Jaundice, No Bruising, No Other Objective Vitals Vital Signs Date Time Temp Pulse Resp B/P (MAP) Pulse Ox O2 Delivery O2 Flow Rate FiO2 01/09/25 05:00 97.7 74 16 117/65 (82) 95 97.7 01/08/25 20:00 Room Air* 0 21 Intake/Output Intake and Output 01/09/25 07:00 Intake Total 1190 ml Balance 1190 ml Intake Oral 1140 ml IV Total 50 ml # Voids 10 # Bowel Movements 3 Medications Current Medications Medications Dose Ordered Sig/Pratik Route Start Time Stop Time Status Last Admin Dose Admin Ondansetron HCl 4 mg Q4HP PRN IV 01/06/25 12:45 Clindamycin Phosphate 50 ml @ 50 mls/hr Q8HR IV 01/06/25 14:00 01/09/25 05:19 50 MLS/HR Acetaminophen/ Hydrocodone Bitart 1 tab Q4HP PRN PO 01/06/25 12:45 01/06/25 21:04 1 TAB Docusate Sodium 100 mg BIDPRN PRN PO 01/06/25 12:45 Acetaminophen 650 mg Q6HP PRN PO 01/06/25 12:45 Laboratory Results Laboratory Tests 01/07/25 05:19 Urinalysis Test 01/06/25 08:48 Urine Color Yellow (Yellow) Urine Clarity Clear (Clear) Urine pH 6.0 (5.0-9.0) Urine Specific [place] 1.023 (1.001-1.035) Urine Protein Negative (Negative) Urine Ketones Negative (Negative) Urine Blood Negative /uL (Negative) Urine Nitrite Negative (Negative) Urine Bilirubin Negative (Negative) Urine Urobilinogen Normal mg/dL (Negative) Urine Leukocyte Esterase Negative /uL (Negative) Urine RBC 2 /hpf (0 - 4) Urine Microscopic WBC 2 /HPF (0-5) Urine Squamous Epithelial Cells Few /hpf (<5) Urine Bacteria Few /hpf (None Seen) H Urine Mucus Few (None Seen) Urine Glucose Normal mg/dL (Normal) Microbiology Microbiology Date/Time Source Procedure Growth Status 01/06/25 17:14 Leg Gram Stain - Final Resulted 01/06/25 17:14 Leg Wound Culture - Preliminary Resulted 01/06/25 07:17 Blood Blood Culture - Preliminary NO GROWTH AFTER 72 HOURS OF INCUBATION. Resulted Labs and/or images reviewed: Labs reviewed by me, Image(s) reviewed by me Assessment/Plan Assessment/Plan Sepsis secondary to cellulitis left lower extremity Acute Cellulitis left lower extremity clindamycin IV Hypertension Hypercholesterolemia Patient feels better and discharged home Plan discussed with: Patient Date of Service: Jan 09, 2025 Billing Provider: ALMA RAYA MD Common Visit Codes: [id number] INP/OBS CARE(HIGH) ALMA RAYA MD Jan 09, 2025 09:31
--- NOTE | 2025-01-09 09:35 | DVHDS2 ---
Discharge Summary Date of Admission Jan 06, 2025 at 12:30 Date of Discharge: Jan 09, 2025 Admitting Diagnosis Left leg cellulitis Wounds: Left leg cellulitis Labs/Diagnostic Data: Laboratory Results Test 01/07/25 05:19 01/06/25 08:48 01/06/25 07:10 White Blood Count 11.0 10^3/uL (4.4-10.8) Red Blood Count 4.52 10^6/uL (4.0-5.20) Hemoglobin 13.3 g/dL (12.2-16.2) Hematocrit 41.0 % (36.0-46.0) Mean Corpuscular Volume 90.9 fL (80.0-100.0) Mean Corpuscular Hemoglobin 29.5 pg (28.0-32.0) Mean Corpuscular Hemoglobin Concent 32.4 g/dL (32.0-36.0) Red Cell Distribution Width 15.0 % (11.8-14.3) Platelet Count 254 10^3/uL (140-450) Mean Platelet Volume 10.9 fL (6.9-10.8) Neutrophils (%) (Auto) 73.5 % (37.0-80.0) Lymphocytes (%) (Auto) 17.6 % (10.0-50.0) Monocytes (%) (Auto) 6.1 % (0.0-12.0) Eosinophils (%) (Auto) 2.1 % (0.0-7.0) Basophils (%) (Auto) 0.7 % (0.0-2.0) Neutrophils # (Auto) 8.1 10 ^3/uL (1.6-8.6) Lymphocytes # (Auto) 1.9 10 ^3/uL (0.4-5.4) Monocytes # (Auto) 0.7 10 ^3/uL (0-1.3) Eosinophils # (Auto) 0.2 10 ^3/uL (0-0.8) Basophils # (Auto) 0.1 10 ^3/uL (0-0.2) Nucleated Red Blood Cells 0.2 % Sodium Level 137 mmol/L (136-145) Potassium Level 4.2 mmol/L (3.5-5.1) Chloride Level 103 mmol/L (98-107) Carbon Dioxide Level 24 mmol/L (20-31) Anion Gap 10 (5-15) Blood Urea Nitrogen 8 mg/dL (9-23) Creatinine 0.78 mg/dL (0.550-1.02) Glomerular Filtration Rate Calc 86 mL/min (>90) BUN/Creatinine Ratio 10.3 (10.0-20.0) Serum Glucose 105 mg/dL (74-106) Calcium Level 9.4 mg/dL (8.7-10.4) Total Bilirubin 0.8 mg/dL (0.2-1.0) Aspartate Amino Transferase (AST) 40 U/L (13-40) Alanine Aminotransferase (ALT) 35 U/L (7-40) Alkaline Phosphatase 112 U/L (46-116) Total Protein 7.6 g/dL (5.7-8.2) Albumin 4.1 g/dL (3.2-4.8) Urine Color Yellow (Yellow) Urine Clarity Clear (Clear) Urine pH 6.0 (5.0-9.0) Urine Specific [place] 1.023 (1.001-1.035) Urine Protein Negative (Negative) Urine Ketones Negative (Negative) Urine Blood Negative /uL (Negative) Urine Nitrite Negative (Negative) Urine Bilirubin Negative (Negative) Urine Urobilinogen Normal mg/dL (Negative) Urine Leukocyte Esterase Negative /uL (Negative) Urine RBC 2 /hpf (0 - 4) Urine Microscopic WBC 2 /HPF (0-5) Urine Squamous Epithelial Cells Few /hpf (<5) Urine Bacteria Few /hpf (None Seen) Urine Mucus Few (None Seen) Urine Glucose Normal mg/dL (Normal) Erythrocyte Sedimentation Rate 39 mm/hr (0-20) Lactic Acid Level 0.8 mmol/L (0.4-2.0) C-Reactive Protein High Sensitivity 8.21 mg/dL (<1.0) Other Laboratory Tests 01/07/25 05:19 Brief Hx & Hospital Course: 59-year-old female with a history of hypertension hypercholesterolemia admitted for left lower leg cellulitis treated with a clindamycin IV and pain medication. Patient feels better with less redness and less pain. Discharged home on p.o. clindamycin KRISTIN Ramirez at bedside Consults/Reason for consult None Operations or Procedures None Condition at Discharge: Fair Final Diagnosis/Problems List Sepsis secondary to cellulitis left lower extremity Acute Cellulitis left lower extremity clindamycin IV Hypertension Hypercholesterolemia Discharge Disposition: Home Discharge Instruct/Medications Diet: Regular Activity: No Restrictions, As Tolerated Follow Up/Referral: Follow up with the primary Dr in one week Medications: Clindamycin Transmitted to [facility] Scheduled Clindamycin Hcl (Clindamycin Hcl), 1 CAP PO TID Multiple Vitamin (Multivitamins), 1 TAB PO DAILY, (Reported) Valsartan-Hydrochlorothiazide (Diovan Hct), 1 TAB PO DAILY, (Reported) 39 (Time taken for discharge summary 39 minutes) Discharge Statement: "Patient was advised to return to the ER or call 911 if any headaches, dizziness, shortness of breath, chest pain, abdominal pain, bleeding, fevers, or worsening of medical condition. Patient was counseled about treatment plan, medications, possible side effects, patientverbalized understanding. All questions were answered to the best of my ability. This discharge took greater then 30 minutes in planning, reviewing documentation, counseling the patient, and discussing with other team members." ASSESSMENT ASSESSMENT Hospital Course Improved Assessment Sepsis secondary to cellulitis left lower extremity Acute Cellulitis left lower extremity clindamycin IV Hypertension Hypercholesterolemia Date of Service: Jan 09, 2025 Billing Provider: ALMA RAYA MD Common Visit Codes: [id number] DISCH DAY >30min ALMA RAYA MD Jan 09, 2025 09:35
[2025-01-09 11:30] VITALS: BP 124/84; PULSE 68; RESP 17; TEMP 97.6; O2SAT 92
[2025-01-09 13:00] VITALS: BP 122/76; PULSE 66; RESP 16; TEMP 97.5; O2SAT 94
== END 2025-01-09 15:30 | disposition home or self-care (01) | DRG 720 ==
LOC: ER 06:05 → OVERFLOW 12:30 → ER 12:31 → OVERFLOW 12:31 → EAST 15:45
PROVIDERS: ADMIT Family Medicine; ATTEND Family Medicine
DX: A41.9 Sepsis, unspecified organism (principal); L03.116 Cellulitis of left lower limb; E11.9 Type 2 diabetes mellitus without complications; I10 Essential (primary) hypertension; E78.00 Pure hypercholesterolemia, unspecified; Z83.3 Family history of diabetes mellitus; Z90.49 Acquired absence of other specified parts of digestive tract; Z98.51 Tubal ligation status
CPT/HCPCS: 36415; 73701; 80053; 81001; 83605; 85025; 85652; 86141; 87040; 87081; 87205; 96365; 96366; G0378; J3490